=== PATIENT | female | born 1995 | race Two or more races ===

== ENCOUNTER 2019-03-08 08:45 | Outpatient (CLI) | payer OTHER ==
[~2019-03-08] VITALS: Ht 152.4 cm; Wt 59.0 kg
[2019-03-08] MEDS ORDERED: ZANTAC300 MG PO (11:38)
== END 2019-03-08 09:00 | disposition home or self-care (01) ==
LOC: OFIC 805 08:45
DX: D10.39 Benign neoplasm of other parts of mouth (principal); J31.0 Chronic rhinitis; J37.0 Chronic laryngitis

== ENCOUNTER 2020-07-08 16:18 | Outpatient (CLI) | payer OTHER ==
[~2020-07-08 16:18] MED LIST: ZANTAC300 MG PO
== END 2020-07-08 17:00 | disposition home or self-care (01) ==
LOC: OFIC 805 16:18
PROVIDERS: ATTEND Otolaryngology Otology & Neurotology
DX: K21.9 Gastro-esophageal reflux disease without esophagitis (principal); J37.0 Chronic laryngitis

== ENCOUNTER 2024-01-03 10:41 | Outpatient (CLI) | payer OTHER | END 2024-01-03 10:43 | disposition home or self-care (01) | LOC: PRENATAL 10:41 | PROVIDERS: ATTEND Obstetrics & Gynecology Maternal & Fetal Medicine | DX: O36.80X0 Pregnancy with inconclusive fetal viability, not applicable or unspecified (principal); Z36.82 Encounter for antenatal screening for nuchal translucency; Z3A.14 14 weeks gestation of pregnancy ==

== ENCOUNTER 2024-05-12 14:56 | Outpatient (CLI) | payer OTHER ==
[~2024-05-12 14:56] MED LIST changes: +AMPICILLIN TRI500 MG PO; +PRENATAL TABLE1 EAC1 PO
== END 2024-05-12 14:57 | disposition home or self-care (01) ==
LOC: PRENATAL 14:56
PROVIDERS: ATTEND Obstetrics & Gynecology Maternal & Fetal Medicine
DX: O26.843 Uterine size-date discrepancy, third trimester (principal); O36.8130 Decreased fetal movements, third trimester, not applicable or unspecified; Z3A.32 32 weeks gestation of pregnancy

== ENCOUNTER 2024-06-26 13:00 | Inpatient (IN) | payer OTHER ==
[2024-06-26] VITALS (8 sets, daily range): BP systolic 111–127; BP diastolic 54–75
[~2024-06-26] VITALS: Ht 160 cm; Wt 73.9 kg
[2024-06-26] MEDS ORDERED: MORPHINE SULFATE 4 MG/ML CARTRIDGE IV ONE (14:30)
[2024-06-26] MEDS ORDERED: PROMETHAZINE HCL 25 MG/ML AMPUL IV ONE (14:30)
[2024-06-26] MEDS ORDERED: OXYTOCIN 500 ML IV SCH (14:30)
[2024-06-26] MEDS ORDERED: RINGERS SOLUTION,LACTATED 1,000 ML IV SCH (14:30)
[2024-06-26 14:55] LABS: PH,URINE 6.5 (5.0-8.0); URINE APPEARANCE Clear; URINE BILIRRUBIN Negative (NEGATIVE); URINE BLOOD Negative; URINE COLOR Yellow; URINE EPITHELIAL CELLS 8.8 uL (0.0-38.8); URINE GLUCOSE Negative (NEGATIVE); URINE LEUKOCYTE Negative; URINE NITRATE Negative; URINE PROTEIN 30 (NEGATIVE); URINE RBC 4.2 uL (0.0-20.8); URINE WBC 8.3 uL (0.0-23.2)
[2024-06-26 14:59] LABS: URINE CAST 0.76 uL (0.0-1.40); URINE KETONE 80 (NEGATIVE)
[2024-06-26 15:03] LABS: HEMATOCRIT 35.6 % (36.0-45.00); HEMOGLOBIN 11.9 g/dL (12.0-15.00); MEAN CELL VOLUME 98.1 fL (80.00-100.00); MEAN CORPUSCULAR HEMOGLOBIN 32.8 pg (27.00-32.0); MEAN CORPUSCULAR HGB CONC 33.4 g/dl (32.0-36.0); PLATELET COUNT 146 K/uL (150-450); RED BLOOD COUNT 3.63 M/uL (4.00-6.00)
[2024-06-26 15:15] LABS: INR 0.94; PARTIAL THROMBOPLASTIN TIME 29.6 SECONDS (22.0-34.0); PROTHROMBIN TIME 10.3 SECONDS (9.0-11.5)
[2024-06-26 15:49] LABS: ALBUMIN 2.9 gm/dL (3.4-5.0); BILIRUBIN TOTAL 0.81 mg/dL (0.3-1.2); CALCIUM 9.5 mg/dL (8.5-10.1); CREATININE SERUM 0.67 mg/dL (0.55-1.02); GFR 104.06; GLOBULINA 3.7 G/DL (2.4-3.5); POTASSIUM 3.94 mEq/L (3.5-5.1); TOTAL PROTEIN 6.6 gm/dL (6.4-8.2)
[2024-06-26] MEDS ORDERED: MORPHINE SULFATE 4 MG/ML VIAL IV ONE (16:45)
[2024-06-26] MEDS ORDERED: IBUprofen 400 MG TABLET PO PRN (18:15)
[2024-06-26] MEDS ORDERED: CHLORHEXIDINE GLUCONATE 120 ML BOTTLE TOP ONE (20:45)
[2024-06-26] MEDS ORDERED: OXYTOCIN 1,000 ML IV SCH (20:45)
[2024-06-26] MEDS ORDERED: ERYTHROMYCIN BASE OPHT 1GM EACH TUBE OP ONE (20:45)
[2024-06-27] VITALS: BP 112/70
[2024-06-27 05:10] VITALS: BP 103/66
[2024-06-27 06:32] LABS: HEMATOCRIT 34.1 % (36.0-45.00); HEMOGLOBIN 11.6 g/dL (12.0-15.00); MEAN CELL VOLUME 95.9 fL (80.00-100.00); MEAN CORPUSCULAR HEMOGLOBIN 32.6 pg (27.00-32.0); PLATELET COUNT 138 K/uL (150-450); RED BLOOD COUNT 3.55 M/uL (4.00-6.00); RED CELL DISTRIBUTION WIDTH 14.1 % (11.5-14.5)
[2024-06-27 08:00] VITALS: BP 106/64
[2024-06-27] MEDS ORDERED: PNV,CALCIUM 72/IRON/FOLIC ACID 1 TAB TABLET PO SCH (09:00)
[2024-06-27 16:00] VITALS: BP 102/65
[2024-06-28 01:29] VITALS: BP 100/66
[2024-06-28 07:59] VITALS: BP 110/71
== END 2024-06-28 17:02 | disposition home or self-care (01) | DRG 807 ==
LOC: LDR 13:56 → OB/GYN 13:56 → LDR 15:16 → OB/GYN 18:53
PROVIDERS: ADMIT Obstetrics & Gynecology; ATTEND Obstetrics & Gynecology
PROC: 10E0XZZ Delivery of Products of Conception, External Approach (ICD-10-PCS; principal; 2024-06-26)
PROC: 0UQG7ZZ Repair Vagina, Via Natural or Artificial Opening (ICD-10-PCS; 2024-06-26)
PROC: 4A1HXCZ Monitoring of Products of Conception, Cardiac Rate, External Approach (ICD-10-PCS; 2024-06-26)
DX: O71.4 Obstetric high vaginal laceration alone (principal); Z37.0 Single live birth; Z3A.39 39 weeks gestation of pregnancy; Z20.822 Contact with and (suspected) exposure to COVID-19